=== PATIENT | male | born 1985 | race Two or more races ===

== ENCOUNTER 2017-08-22 16:45 | Emergency (ER) | payer SELFPAY ==
[~2017-08-22] VITALS: Ht 172.7 cm; Wt 72.6 kg
[2017-08-22 17:32] VITALS: BP 156/98
== END 2017-08-22 19:43 | disposition home or self-care (01) ==
LOC: ER 16:53
DX: M62.838 Other muscle spasm (principal); R51 Headache
CPT/HCPCS: 70450; 72040

== ENCOUNTER 2020-09-04 02:10 | Emergency (ER) | payer SELFPAY ==
[~2020-09-04] VITALS: Ht 172.7 cm; Wt 63.5 kg
[2020-09-04] MEDS ORDERED: LIDOCAINE 1% HCL (LOCAL ANESTH.) INJ 20ML MDV ID ONE (05:00)
[2020-09-04] MEDS ORDERED: TETANUS-DIPTH-ACEL PERTUSSIS 0.5ML SYR Tdap IM ONE (06:00)
[2020-09-04 07:21] VITALS: BP 127/76
== END 2020-09-04 07:34 | disposition home or self-care (01) ==
LOC: ER 02:19
DX: S01.412A Laceration without foreign body of left cheek and temporomandibular area, initial encounter (principal); S01.112A Laceration without foreign body of left eyelid and periocular area, initial encounter; W18.39XA Other fall on same level, initial encounter; Y93.89 Activity, other specified; Y92.89 Other specified places as the place of occurrence of the external cause; Y99.8 Other external cause status
CPT/HCPCS: 12014; 70450; 70486; 72125; 90471; 90715; 99285; J2001; 12013

== ENCOUNTER 2020-09-14 14:57 | Emergency (ER) | payer SELFPAY ==
[~2020-09-14] VITALS: Ht 170.2 cm; Wt 72.1 kg
[2020-09-14 15:00] VITALS: BP 150/93
== END 2020-09-14 16:08 | disposition home or self-care (01) ==
LOC: ER 14:57
DX: Z48.00 Encounter for change or removal of nonsurgical wound dressing (principal)